=== PATIENT | female | born 1960 | race Caucasian/White ===

== ENCOUNTER 2023-12-13 04:22 | Day surgery (SDC) | payer BC, OTHER ==
[2023-12-11 19:17] VITALS: BMI 40.4
[2023-12-13] MEDS ORDERED: BUPIVACAINE HCL/PF 0.5% (5MG/ML) 10 ML VIAL ONE (07:30)
[2023-12-13] MEDS ORDERED: INDOCYANINE GREEN 25 MG/10 ML VIAL IVPUSH ONE (07:30)
[2023-12-13] MEDS ORDERED: LIDOCAINE 1%/EPI 1:100000 (20 ML MULTI DOSE VIAL) ONE ×2 (07:31→09:25)
[2023-12-13] MEDS ORDERED: DEXAMETHASONE SOD PHOSPHATE 4 MG/1 ML VIAL ONE (07:46)
[2023-12-13] MEDS ORDERED: ONDANSETRON 4 MG/2 ML VIAL ONE (07:46)
[2023-12-13] MEDS ORDERED: LIDOCAINE HCL/PF 2% SDV 5ML VIAL ONE (07:46)
[2023-12-13] MEDS ORDERED: PROPOFOL 20 ML ONE (07:46)
[2023-12-13] MEDS ORDERED: MIDAZOLAM HCL 2 MG/2 ML SINGLE DOSE VIAL ONE (07:47)
[2023-12-13] MEDS ORDERED: ROCURONIUM BROMIDE 50 MG/5 ML SYRINGE ONE ×2 (07:47→09:29)
[2023-12-13] MEDS ORDERED: ceFAZolin SODIUM 1 GM VIAL ONE (08:50)
[2023-12-13] MEDS: ceFAZolin SODIUM 1 GM VIAL IVPB ONE (09:00)
[2023-12-13] MEDS ORDERED: HYDROmorphone HCl 2 MG/ML VIAL ONE (09:20)
[2023-12-13] MEDS: LIDOCAINE 1%/EPI 1:100000 (50 ML MULTI DOSE VIAL) INF ONE (09:30)
[2023-12-13] MEDS ORDERED: ACETAMINOPHEN INJECTION 100 ML IVPB ONE ×2 (10:02→11:03)
[2023-12-13] MEDS ORDERED: KETOROLAC TROMETHAMINE 30 MG/1 ML VIAL ONE (11:12)
[2023-12-13] MEDS ORDERED: TIRZEPATIDE 2.5 MG/0.5 ML SQ SCH (11:30)
[2023-12-13] MEDS ORDERED: [UNRECOGNIZED DRUG - OTHER] SQ SCH (11:30)
[2023-12-13] MEDS ORDERED: PATIENT'S OWN MEDICATION (NON-FORMULARY) (Insulin Lispro [Humalog Kwikpen U-100] 100 UNIT/ SQ SCH (11:30)
[2023-12-13] MEDS ORDERED: NEOSTIGMINE METHYLSULFATE 0.5 MG/1 ML - 10 ML MDV ONE (11:33)
[2023-12-13] MEDS ORDERED: GLYCOPYRROLATE 0.2 MG/1 ML VIAL ONE (11:33)
[2023-12-13] MEDS ORDERED: oxyCODONE HCL 5 MG TABLET PO PRN ×3 (12:16→13:03)
[2023-12-13] MEDS ORDERED: ONDANSETRON 4 MG/2 ML VIAL IVPUSH PRN (12:51)
[2023-12-13] MEDS ORDERED: HYDROmorphone HCL CARPU-JECT 2 MG/1 ML DISP.SYRIN IVPB PRN (13:04)
[2023-12-13] MEDS: LACTATED RINGERS SOLUTION 1,000 ML IV SCH (14:10)
[2023-12-13] MEDS ORDERED: KETOROLAC TROMETHAMINE 30 MG/1 ML VIAL IVPUSH SCH (15:00)
[2023-12-13] MEDS: KETOROLAC TROMETHAMINE 30 MG/1 ML VIAL IVPUSH SCH (16:57)
[2023-12-13] MEDS: INSULIN ASPART SLIDING SCALE (NOVOLOG) 1 VIAL SQ SCH (16:58)
[2023-12-13] MEDS ORDERED: CEFAZOLIN 2 GM in DEXTROSE 5%-WATER - 100 ML IVPB SCH (18:00)
[2023-12-13] MEDS: ACETAMINOPHEN 500 MG TABLET (FP) PO SCH (18:11)
[2023-12-14] MEDS: INSULIN (LEVEMIR) 100 UNITS/ML UNITS SQ SCH (06:21)
[2023-12-14] MEDS: PIOGLITAZONE HCL 30 MG TABLET PO SCH (06:22)
[2023-12-14 06:58] LABS: BASO % 0.5 % (0-2.0); EOS % 0.5 % (0-4.5); HEMATOCRIT 37.1 % (32.4-45.2); HEMOGLOBIN 12.4 GM/dL (10.7-15.3); LYMPH % 25.5 % (8-40); MCH 29.4 pg (25.7-33.7); MCHC 33.3 g/dl (32.0-36.0); MEAN CELL VOLUME 88.4 fl (80-96); MEAN PLT VOLUME 8.5 fl (7.5-11.1); MONO % 10.9 % (3.8-10.2); NEUT % 62.6 % (42.8-82.8); PLATELET COUNT 292 10^3/uL (134-434); RDW 14.4 % (11.6-15.6); WHITE BLOOD COUNT 10.2 K/mm3 (4.0-10.0)
[2023-12-14 07:24] LABS: POTASSIUM 4.8 mmol/L (3.5-5.1)
[2023-12-14 07:26] LABS: BLOOD UREA NITROGEN 19.2 mg/dL (7-18); CALCIUM 8.7 mg/dL (8.5-10.1)
[2023-12-14] MEDS ORDERED: LUTEIN EXTRACT PO SCH (10:00)
[2023-12-14] MEDS ORDERED: ZEAXANTHIN EXT PO SCH (10:00)
[2023-12-14] MEDS ORDERED: [UNRECOGNIZED DRUG - OTHER] PO SCH (10:00)
[2023-12-14] MEDS ORDERED: PATIENT'S OWN MEDICATION (NON-FORMULARY) (Dapagliflozin Propanediol 5 MG Tablet) PO SCH (10:00)
[2023-12-14] MEDS: CHOLECALCIFEROL (VIT D3) 1,000 UNIT (25 MCG) TABLET PO SCH (10:00)
[2023-12-14] MEDS: LOSARTAN POTASSIUM 50 MG TABLET PO SCH (10:56)
[2023-12-14] MEDS: ENOXAPARIN NA (PORCINE) 40 MG/0.4 ML DISP.SYRIN SQ SCH (10:59)
[2023-12-14 12:11] VITALS: BP 126/74; PULSE 90; RESP 17; TEMP 98.7
== END 2023-12-14 13:30 | disposition home or self-care (01) ==
LOC: JASU-SURG 04:22 → JASUSAT 04:22 → SUATTDRO 04:22 → J3W 14:38 → JASUSAT 12-14 13:30
PROVIDERS: ATTEND Internal Medicine
PROC: 0UJD4ZZ Inspection of Uterus and Cervix, Percutaneous Endoscopic Approach (ICD-10-PCS; 2023-12-13)
PROC: 0UT70ZZ Resection of Bilateral Fallopian Tubes, Open Approach (ICD-10-PCS; 2023-12-13)
PROC: 0UT20ZZ Resection of Bilateral Ovaries, Open Approach (ICD-10-PCS; 2023-12-13)
PROC: 8E0W0CZ Robotic Assisted Procedure of Trunk Region, Open Approach (ICD-10-PCS; 2023-12-13)
PROC: 0UT90ZZ Resection of Uterus, Open Approach (ICD-10-PCS; principal; 2023-12-13 08:00)
DX: D25.9 Leiomyoma of uterus, unspecified (principal); N70.11 Chronic salpingitis; Z53.31 Laparoscopic surgical procedure converted to open procedure
CPT/HCPCS: 58150; S2900; 36415; 80048; 82962; 83036; 85025; 86850; 86900; 86901; 88307-TC; 94010; 94760; J0131